=== PATIENT | female | born 1985 | race Caucasian/White ===

== ENCOUNTER → 2019-03-09 10:48 | Outpatient (CLI) | payer OTHER, SELFPAY ==
[2019-03-09 11:19] LABS: Add Manual Diff / Slide Review NO; Basophils Absolute Auto 0 /uL (0-100); Basophils Percent Auto 0.7 % (0-2); Eosinophils Absolute Auto 100 /uL (0-450); Eosinophils Percent Auto 1.3 % (2-4); Hematocrit 38.7 % (36-46); Lymphocytes Absolute Auto 1300 /uL (1100-4500); Lymphocytes Percent Auto 23.1 % (25-40); Mean Corpuscular HGB Conc 33.6 % (30-36); Mean Corpuscular Hemoglobin 29.3 PG (26-34); Mean Corpuscular Volume 87.1 fL (80-100); Monocytes Absolute Auto 400 /uL (0-900); Monocytes Percent Auto 7.2 % (3-14); Neutrophils Absolute Auto 4000 /uL (1500-7000); Neutrophils Percent Auto 67.7 % (50-75); Platelet Count 300 X10^3/uL (150-400); Red Blood Cell Count 4.44 X10^6/uL (4.0-5.2); Red Cell Distribution Width 13.3 % (11.6-14.8); White Blood Cell Count 5.9 X10^3/uL (4.5-11.0)
[2019-03-09 11:33] LABS: HEMOLYSIS < 15 (0-50); Iron 90 ug/dL (37-170)
[2019-03-09 11:44] LABS: Percent Iron Saturation 35 % (15-50); Total Iron Binding Capacity 256 ug/dL (265-497); Transferrin 210 mg/dL (206-381)
[2019-03-09 12:04] LABS: Thyroid Stimulating Hormone 1.53 uIU/mL (0.47-4.68)
== END ==
PROVIDERS: PCP Physician Assistant Medical; Visit Provider Physician Assistant
DX: N92.0 Excessive and frequent menstruation with regular cycle (principal); R53.83 Other fatigue
CPT/HCPCS: 36415; 83540; 83550; 84443; 85025

== ENCOUNTER → 2020-05-23 08:25 | Outpatient (CLI) | payer OTHER, SELFPAY ==
[2020-05-23 09:08] LABS: Cholesterol 162 mg/dL (140-199)
== END ==
PROVIDERS: Referring Provider Student in an Organized Health Care Education/Training Program; Visit Provider Student in an Organized Health Care Education/Training Program
DX: Z13.9 Encounter for screening, unspecified (principal)
CPT/HCPCS: 36415; 82465

== ENCOUNTER 2023-04-22 13:58 | Emergency (ER) | payer BC, SELFPAY ==
[2023-04-22 14:02] VITALS: BP 134/79; PULSE 96; RESP 15; TEMP 37.2; O2SAT 100; BMI 25.8
== END 2023-04-22 14:36 | disposition left against medical advice (07) ==
PROVIDERS: Emergency Provider Student in an Organized Health Care Education/Training Program
CPT/HCPCS: 99281